=== PATIENT | male | born 1955 | race Caucasian/White ===

== ENCOUNTER 2020-11-22 08:36 | Emergency (ER) | payer MEDICARE ==
[~2020-11-22] VITALS: Ht 175.3 cm; Wt 101.8 kg
[2020-11-22 08:41] VITALS: TEMP 98.6
[2020-11-22] MEDS ORDERED: LIPITOR 10MG10 MG PO (08:56)
[2020-11-22] MEDS ORDERED: HYZAAR 50-12.1 UDTAB PO (08:56)
[2020-11-22] MEDS ORDERED: PRIL40 PO (08:57)
[2020-11-22 09:06] LABS: BASO # 0.1 (0.0-0.2); BASO % 0.7 % (0.0-2.0); EOS # 0.1 (0.0-0.7); EOS % 0.8 % (0-4.0); GRAN # 4.1 (1.4-6.5); GRAN % 55.7 % (42.2-75.2); HEMATOCRIT 45.9 % (42.0-52.0); HEMOGLOBIN 16.2 g/dl (13.5-18.0); LYMPH # 2.7 (1.2-3.4); LYMPH % 36.6 % (20.0-51.0); MEAN CELL VOLUME 91 fl (80.0-100.0); MEAN CORPUSCULAR HEMOGLOBIN 32 pg (27.0-31.0); MEAN CORPUSCULAR HGB CONC 35 g/dl (33.0-37.0); MEAN PLATELET VOLUME 8.8 fl (7.4-10.4); MONO # 0.4 (0.1-0.6); MONO % 5.9 % (1.7-9.3); PLATELET COUNT 375 K/mm3 (130-400); RED BLOOD COUNT 5.03 M/mm3 (4.20-5.60); REDCELL DISTRIBUTION WIDTH-CV 12.3 % (11.5-14.5)
[2020-11-22 09:09] LABS: PROTHROMBIN TIME 10.8 SECONDS (9.7-12.8)
[2020-11-22 09:15] LABS: ALANINE AMINOTRANSFERASE 34 U/L (4-49); ALBUMIN 4.7 gm/dL (3.5-5.0); ALKALINE PHOSPHATASE 46 U/L (50-136); ANION GAP 12 mmol/L (7-16); AST,SGOT 40 U/L (15-37); BLOOD UREA NITROGEN 18 mg/dL (9-20); CALCIUM 9.4 mg/dL (8.4-10.2); CARBON DIOXIDE 23 mmol/L (22-30); CHLORIDE 107 mmol/L (98-107); CREATININE, serum 0.98 (0.66-1.25); GLUCOSE 124 mg/dL (74-106); SODIUM 142 mmol/L (137-145); TOTAL PROTEIN 7.8 gm/dL (6.4-8.2)
[2020-11-22 09:30] LABS: TROPONIN-I < 0.012 ng/mL (0.000-0.035)
[2020-11-22] MEDS ORDERED: PLAVIX 75MG TAB75 MG PO (13:04)
[2020-11-22] MEDS ORDERED: ASPIRIN 32325 MG/TAB PO (13:04)
[2020-11-22 13:27] VITALS: BP 138/87; PULSE 85
== END 2020-11-22 13:20 | disposition home or self-care (01) ==
LOC: COL.ER 08:36
PROVIDERS: Emergency Medicine
DX: U07.1 COVID-19 (principal); R20.0 Anesthesia of skin; R20.2 Paresthesia of skin; I10 Essential (primary) hypertension; E78.5 Hyperlipidemia, unspecified
CPT/HCPCS: Q9967

== ENCOUNTER → 2020-12-06 | Outpatient (CLI) | payer MEDICARE ==
[~2020-12-06] MED LIST: ASPIRIN 32325 MG/TAB PO; HYZAAR 50-12.1 UDTAB PO; LIPITOR 10MG10 MG PO; PLAVIX 75MG TAB75 MG PO; PRIL40 PO
== END ==
LOC: COL.VAS 12:01
DX: G45.9 Transient cerebral ischemic attack, unspecified (principal)